=== PATIENT | female | born 1940 | race Caucasian/White ===

== ENCOUNTER 2016-08-08 13:21 | Inpatient (IN) ==
[2016-08-08] MEDS ORDERED: ZOFRAN IV ONE (13:46)
[2016-08-08] MEDS ORDERED: MORPHINE IV ONE ×2 (13:46→18:23)
--- NOTE | 2016-08-08 13:52 | PROVIDER DOCUMENTATION ---
HPI-Musculoskeletal Pain/Inj - GENERAL Stated Complaint: Hip Pain Post Fall Time Seen by Provider: 08/08/16 13:32 Source: patient - HX OF PRESENT ILLNESS-MUSKULOSKELTAL Nature of Presenting Problem: 76 y/o WF c hx of dementia and MVP, BIB EMS, family at bedside, s/p fall at 1130 today. She was on the boat with her son, was going down to go to the bathroom when she slipped and fell, landing on the right hip and hitting her head. Denies loc. Denies headache, changes in vision, blurry vision, nausea. Patient states she is not in pain, but when you go move the right leg, it is painful to her. Denies abdominal pain. Denies chest pain, sob. No currently on blood thinners. No medications administered on the ambulance ride. Quality of Pain: reports: sharp Severity in ED: moderate Onset/Duration: 1-3 hours ago Timing: still present, constant Any recent injury?: Yes Locality of Occurance: Home Similar Symptoms Previously?: No Recently seen or treated by another doctor?: No Review of Systems - Adult - REVIEW OF SYSTEMS - ADULT Constitutional: reports: no symptoms reported. denies: chills, fever, fatique Eyes: reports: no symptoms reported. denies: decreased vision, blurred vision, double vision, eye pain Ears, Nose, Mouth & Throat: reports: no symptoms reported. denies: ear pain, nose pain, throat pain Cardiovascular: reports: no symptoms reported. denies: chest pain, palpitations Respiratory: reports: no symptoms reported. denies: cough, shortness of breath , wheezing Gastrointestinal: reports: no symptoms reported. denies: abdominal pain, diarrhea, nausea, vomiting Genitourinary: reports: no symptoms reported. denies: incontinence Musculoskeletal: reports: joint pain (right hip). denies: bone pain, back pain , muscle aches Integumentary: reports: no symptoms reported. denies: rash Neurological: reports: no symptoms reported. denies: dizziness/vertigo, headache/migraines Psychiatric: reports: no symptoms reported Endocrine: reports: no symptoms reported Hematologic/Lymphatic: reports: no symptoms reported Allergic/Immunologic: reports: no symptoms reported All Other Systems: Reviewed and Negative Past History - Adult - PAST MEDICAL HISTORY-ADULT Review of Records: reports: Old Records Reviewed, Nursing Assessment Review, Medications Reviewed, Social history reviewed & non-contributory. Major Childhood Illnesses: reports: denies history Cardiovascular: reports: denies history Respiratory: reports: denies history Gastrointestinal: reports: denies history Obstetrical/Gynecological: reports: denies history Genitourinary: reports: denies history Musculoskeletal: reports: denies history Neurological: reports: denies history Endocrine/Immune: reports: denies history Other Conditions: reports: denies history - PRIOR SURGERIES/PROCEDURES Surgical/Procedure History: reports: reviewed, not pertinent - IMMUNIZATION STATUS Childhood Immunizations: See Nurse Assessment Flu Vaccine: See Nurse Assessment - FAMILY HISTORY Family History: reviewed, not pertinent - SOCIAL HISTORY Smoking: denies Substance Use: none/never Alcohol Use Frequency: never Living Situation: family Physical Exam-Injury Related - Physical Exam-Injury Related Initial Vital Signs Reviewed: Yes General Appearance: appears well, alert, no apparent distress Immobilization?: negative: backboard, C-collar, applied in ED, applied SCRAP METAL PROCESSING WORKER Eyes: PERRL/EOMI, pink conjunctivae Head, Ears, Nose, Mouth & Throat: normocephalic/atraumatic, moist mucous membranes Neck: non-tender, full range of motion, supple, normal inspection. negative: C- spine tenderness Respiratory: chest non-tender, lungs clear, normal breath sounds, no pleuratic chest pain, no respiratory distress, no accessory muscle use. negative: respiratory distress, decreased breath sounds, accessory muscle use, crackles, rales, rhonchi, stridor, wheezing Cardiovascular: normal peripheral pulses, regular rate, rhythm Peripheral Pulses: radial (R): 2+, radial (L): 2+, dorsalis-pedis (R): 2+, dorsalis-pedis (L): 2+ Abdominal Exam: normal bowel sounds, non tender, soft, no organomegaly, no pulsatile mass. negative: abdominal bruit, abnormal bowel sounds, distended, guarding, rigid, rebound Extremity: other (dec rom of the right hip. 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, no motor/sensory deficits Psych/Mental Status: normal mood/affect, normal thought content, normal thought process, oriented x 3 - Glascow Coma Score Best Eye Response (Levar): (4) open spontaneously Best Verbal Response (Levar): (5) oriented Best Motor Response (Levar): (6) obeys commands Progress - PLAN OF CARE/RESULTS Progress/Plan/Lab Results: Vital Signs Temp Pulse Resp BP Pulse Ox 08/08/16 19:44 98.5 F 77 122/68 96 08/08/16 16:40 61 18 100/51 97 08/08/16 13:39 98.0 F 63 18 149/66 100 aspirin Allergy (Verified 08/08/16 14:52) ANAPHYLAXIS Dietary Diet NPO Start [place] Aug 08 1620 I&O 08/07/16 08/08/16 08/09/16 06:59 06:59 06:59 Intake Total 90 Output Total 675 Balance -585 Laboratory 08/08/16 08/08/16 08/08/16 18:09 18:09 18:09 WBC 13.66 H RBC 4.10 L Hgb 11.9 L Hct 36.9 L MCV 90.0 MCH 29.0 MCHC 32.2 L RDW Std Deviation 14.1 Plt Count 159 MPV 12.4 H Immature Gran % (Auto) 0.2 Neut % (Auto) 88.4 H Lymph % (Auto) 7.5 L [place] % (Auto) 3.8 Eos % (Auto) 0.0 Baso % (Auto) 0.1 Immature Gran # (Auto) 0.03 Neut # (Auto) 12.06 H Lymph # (Auto) 1.03 L [place] # (Auto) 0.52 Eos # (Auto) 0.00 Baso # (Auto) 0.02 Segmented Neutrophils 88 H Band Neutrophils 2 H Lymphocytes 7 L Monocytes 1 Atypical Lymphocytes 2.0 PT 11.3 INR 1.07 PTT (Actin FS) 24.0 Sodium Potassium Chloride Carbon Dioxide Anion Gap BUN Creatinine Estimated GFR/1.73 m2 BUN/Creatinine Ratio Glucose Calculated Osmolality Calcium Total Bilirubin AST ALT Alkaline Phosphatase Total Protein Albumin Globulin Albumin/Globulin Ratio Urine Source Urine Color Urine Turbidity Urine pH Ur Specific [place] Urine Protein Ur Glucose (Stick) Ur Ketones (Stick) Urine Blood Urine Nitrite Urine Bilirubin Urobilinogen Dipstick Urine Leukocytes Urine WBC (Auto) Urine RBC (Auto) U Epithel Cells (Auto) Urine Bacteria (Auto) Blood Type A POSITIVE Antibody Screen NEGATIVE 08/08/16 08/08/16 08/08/16 18:09 16:10 14:30 WBC RBC Hgb Hct MCV MCH MCHC RDW Std Deviation Plt Count MPV Immature Gran % (Auto) Neut % (Auto) Lymph % (Auto) [place] % (Auto) Eos % (Auto) Baso % (Auto) Immature Gran # (Auto) Neut # (Auto) Lymph # (Auto) [place] # (Auto) Eos # (Auto) Baso # (Auto) Segmented Neutrophils Band Neutrophils Lymphocytes Monocytes Atypical Lymphocytes PT INR PTT (Actin FS) Sodium 140 132 L Potassium 4.0 3.9 Chloride 101 96 L Carbon Dioxide 23 L 24 L Anion Gap 16 12 BUN 15 15 Creatinine 0.6 0.6 L Estimated GFR/1.73 m2 > 60 > 60 BUN/Creatinine Ratio 25 25 Glucose 141 H 94 Calculated Osmolality 283 265 Calcium 9.1 9.3 Total Bilirubin 0.53 AST 27 ALT 21 Alkaline Phosphatase 53 Total Protein 7.2 Albumin 4.5 Globulin 2.7 Albumin/Globulin Ratio 1.7 Urine Source CATH Urine Color YELLOW Urine Turbidity CLEAR Urine pH 7.0 Ur Specific [place] 1.017 Urine Protein NEGATIVE Ur Glucose (Stick) NEGATIVE Ur Ketones (Stick) TRACE A Urine Blood NEGATIVE Urine Nitrite NEGATIVE Urine Bilirubin NEGATIVE Urobilinogen Dipstick NORMAL Urine Leukocytes NEGATIVE Urine WBC (Auto) <10 Urine RBC (Auto) <10 U Epithel Cells (Auto) <10 Urine Bacteria (Auto) NEGATIVE Blood Type Antibody Screen 08/08/16 14:30 WBC 13.20 H RBC 4.28 L Hgb 12.8 L Hct 38.3 L MCV 89.5 MCH 29.9 MCHC 33.4 RDW Std Deviation 14.1 Plt Count 171 MPV 12.5 H Immature Gran % (Auto) 0.3 Neut % (Auto) 86.4 H Lymph % (Auto) 9.8 L [place] % (Auto) 3.1 Eos % (Auto) 0.2 Baso % (Auto) 0.2 Immature Gran # (Auto) 0.04 Neut # (Auto) 11.42 H Lymph # (Auto) 1.29 [place] # (Auto) 0.41 Eos # (Auto) 0.02 Baso # (Auto) 0.02 Segmented Neutrophils Band Neutrophils Lymphocytes Monocytes Atypical Lymphocytes PT INR PTT (Actin FS) Sodium Potassium Chloride Carbon Dioxide Anion Gap BUN Creatinine Estimated GFR/1.73 m2 BUN/Creatinine Ratio Glucose Calculated Osmolality Calcium Total Bilirubin AST ALT Alkaline Phosphatase Total Protein Albumin Globulin Albumin/Globulin Ratio Urine Source Urine Color Urine Turbidity Urine pH Ur Specific [place] Urine Protein Ur Glucose (Stick) Ur Ketones (Stick) Urine Blood Urine Nitrite Urine Bilirubin Urobilinogen Dipstick Urine Leukocytes Urine WBC (Auto) Urine RBC (Auto) U Epithel Cells (Auto) Urine Bacteria (Auto) Blood Type Antibody Screen Orders Category Date [facility]ine AdmDCTranf 08/08/16 16:21 Ordered Activity - Bed Rest with BRP ORDERED Care 08/08/16 16:21 Active Activity Type ORDERED Care 08/08/16 17:31 Inactive Wharton's Traction Placement ONCE Care 08/08/16 18:26 Active Continue Hanks ORDERED Care 08/08/16 17:46 Hold Hanks Cath Insertion ORDERED Care 08/08/16 15:26 Completed Ice Chips ORDERED Care 08/08/16 18:24 Active Ice Pack to affected area DIRECTED Care 08/08/16 17:31 Active Misc. NRSG Communication Order DIRECTED Care 08/08/16 18:15 Completed Neurological Check PRN Care 08/08/16 16:21 Active Nursing- MD Consult Request ROUTINE Care 08/08/16 17:28 Completed Saline Loc NOW Care 08/08/16 13:45 Completed Start Pressure Ulcer Preventio ORDERED Care 08/08/16 17:31 Completed Update & Confirm Home Medicati ROUTINE Care 08/08/16 17:31 Active Vital Signs Order ROUTINE Care 08/08/16 16:21 Completed Vital Signs Order ROUTINE Care 08/08/16 17:31 Completed Physician/Provider Consults Routine Cons 08/08/16 17:20 Ordered NPO Diet 08/08/16 16:21 Active NPO Diet 08/09/16 00:01 Active CHEST-PORTABLE [RAD] Routine Exams 08/08/16 17:39 Taken HEAD/C-SPINE W/O CONTRAST [CT] Stat Exams 08/08/16 13:45 Draft PELVIS W/O CONTRAST [CT] Stat Exams 08/08/16 13:46 Draft BASIC METABOLIC PANEL [CHEM] Urgent Lab 08/08/16 18:09 Completed CBC WITH DIFF [HEME] Urgent Lab 08/08/16 18:09 Completed CBC WITH ELECTRONIC DIFF [HEME] Stat Lab 08/08/16 14:30 Completed COMPREHENSIVE METABOLIC PANEL [CHEM] Stat Lab 08/08/16 14:30 Completed PROTIME WITH INR [COAG] Urgent Lab 08/08/16 18:09 Completed PTT [COAG] Urgent Lab 08/08/16 18:09 Completed TYPE & SCREEN [BBK] Urgent Lab 08/08/16 18:09 Completed UA Reflex [URINALYSIS W/POSS RFLX CULT] [URINALYSIS] Lab 08/08/16 16:10 Completed Stat URINALYSIS [URINALYSIS] Routine Lab 08/08/16 17:31 Uncollected URINE CULTURE [RM] Routine Lab 08/08/16 17:31 Uncollected Acetaminophen [Tylenol] Med 08/08/16 18:00 Active 1,000 mg PO Q8H Alprazolam [Xanax] Med 08/08/16 18:25 Active 0.5 mg PO Q4H PRN PRN Haloperidol Lactate [Haldol] Med 08/08/16 17:53 Active 0.5 mg IV Q6H PRN PRN Hydromorphone [Dilaudid] Med 08/08/16 15:29 Discontinued 1 mg IV NOW ONE Lactated Ringers Inj [Lr] 1,000 ml Med 08/08/16 17:53 Active IV 75 mls/hr Metoprolol [Lopressor] Med 08/08/16 21:00 Active 25 mg PO Q12HR Morphine Med 08/08/16 14:50 Discontinued 2 mg IM NOW ONE Morphine Med 08/08/16 17:53 Discontinued 2 mg IV Q2H PRN PRN Morphine Med 08/08/16 16:21 Discontinued 2 mg IV Q4H PRN PRN Morphine Med 08/08/16 18:23 Discontinued 4 mg IV NOW ONE Morphine Med 08/08/16 17:53 Active 4 mg IV Q2H PRN PRN Ondansetron [Zofran] Med 08/08/16 14:52 Discontinued 4 mg IM NOW ONE Ondansetron [Zofran] Med 08/08/16 16:21 Active 4 mg IV Q4H PRN PRN Oxycodone I.r. [Oxy Ir] Med 08/08/16 17:53 Discontinued 5 mg PO Q2H PRN PRN Promethazine [Phenergan] Med 08/08/16 16:20 Discontinued 12.5 mg IV NOW ONE Sodium Chloride 0.9% Med 08/08/16 16:20 Discontinued 10 ml INJ NOW ONE EKG [EKG] Routine Ther 08/08/16 17:31 Ordered Transfer/Admit Order [TRANSFER] Routine Transfer 08/08/16 16:22 Completed - CT/MRI 1 CT Study: Cervical Spine, Head Impression: Normal (1. NAP intracranially 2. Advanced DJD but no fx or other definite acute cspine injury) 2 CT Study: Pelvis Impression: Abnormal (right femoral neck fx per Dr. Kahn radiology) - CONSULTS/PCP/HOSPITALIST Notification #1 *Consult/PCP/Hospitalist*: Dr. Dominique, ortho Time Discussed: 16:10 Reason/Comments: right femoral neck fracture Consult Disposition: Admit (Admit to) Departure - Departure Time of Disposition Order: 15:28 DIAGNOSIS: Femoral neck fracture Qualifiers: Encounter type: initial encounter Fracture type: closed Laterality: right Qualified Code(s): S72.001A - Fracture of unspecified part of neck of right femur, initial encounter for closed fracture Disposition: ADMITTED INPATIENT 09 Certified Medical Emergency: Emergent Condition: Stable Attestation - Physician/ TORY Attestation Patient care was provided by Advanced Practice Provider:: Yes Advanced Practice Provider:: Kell Galarza Advanced Practice Provider documentation review:: The Mid-level provider documentation, treatment plan and medical decision making was reviewed by the physician who agrees with all treatment and medical decision making by the MLP.
--- NOTE | 2016-08-08 14:26 | ED EKG INTERP ---
EKG Interpretation - EKG Time of EKG reading by physician:: 14:08 EKG Read and Signed by:: Zaida Juares EKG Interpretation (*Must complete 3 of following elements*): Normal Rate: 85 Rhythm: sinus rhythm with marked sinus arrhythmia [place]: normal Attestation - Scribe Verification/Attestation Scribe:: Elizabeth Valladares Acting as Scribe for:: Zaida Juares Scribe documention review:: This chart was documented by a scribe and accurately reflects the service the provider performed and the decisions made by the provider.
[2016-08-08] MEDS ORDERED: MORPHINE IM ONE (14:50)
[2016-08-08] MEDS ORDERED: ZOFRAN IM ONE (14:52)
[2016-08-08 15:11] LABS: BASO% 0.2 % (0.0-0.8); EOS# 0.02 X1000 (0.0-0.7); EOS% 0.2 % (0.0-10.0); HEMATOCRIT 38.3 % (42.0-52.0); HEMOGLOBIN 12.8 g/dL (14.0-18.0); IMM GRAN# 0.04 X1000 (0.0-0.04); IMM GRAN% 0.3 % (0.0-0.5); LYMPH# 1.29 X1000 (1.2-3.4); LYMPH% 9.8 % (20.5-51.1); MANUAL DIFF NEEDED? NO; MCH 29.9 PG (27-31); MCHC 33.4 g/dL (33-37); MCV 89.5 FL (81-99); MONO# 0.41 X1000 (0.11-0.59); MONO% 3.1 % (1.7-9.3); MPV 12.5 FL (7.4-10.4); NEUT% 86.4 % (42.2-75.2); PLT 171 X1000 (130-400); RBC 4.28 XMIL (4.7-6.1)
[2016-08-08 15:15] LABS: AGAP 12; ALBUMIN 4.5 g/dL (3.5-5.0); ALKALINE PHOSPHATASE 53 U/L (32-122); BUN 15 mg/dL (8-22); CALCIUM 9.3 mg/dL (8.8-10.2); CHLORIDE 96 mmol/L (98-107); COSMO 265; GOT 27 U/L (10-34); GPT 21 U/L (10-44); POTASSIUM 3.9 mmol/L (3.5-5.1); SODIUM 132 mmol/L (136-145); TCO2 24 mmol/L (25-35); TOTAL BILIRUBIN 0.53 mg/dL (0.20-1.00); TOTAL PROTEIN 7.2 g/dL (6.3-8.3)
[2016-08-08] MEDS ORDERED: DILAUDID IV ONE (15:29)
[2016-08-08] MEDS ORDERED: PHENERGAN IV ONE (16:20)
[2016-08-08] MEDS ORDERED: SODIUM CHLORIDE 0.9% INJ ONE (16:20)
[2016-08-08] MEDS ORDERED: MORPHINE IV PRN ×2 (16:21→17:53)
--- NOTE | 2016-08-08 16:53 | Diag Imaging Result Document ---
PROCEDURE NAME: PELVIS W/O CONTRAST - 08/08/2016 CT [facility] PELVIS WITHOUT CONTRAST: COMPARISON: None available. FINDINGS: There is an acute fracture involving the neck of the right femur. There is superior apex angulation of the fracture and some superior retraction of the femoral shaft. There are degenerative changes involving both femoral heads with sclerosis, which could indicate chronic avascular necrosis. No other discrete fracture is identified involving the hips, pelvis, or sacrum. There are extensive degenerative changes involving the lower lumbar spine. IMPRESSION: Fracture of the right femoral neck as described.
[2016-08-08 17:00] LABS: URINE CULTURE NEEDED? NO; URINE MICRO REVIEW NEEDED? NO; URINE SOURCE CATH
[2016-08-08 17:02] LABS: BILIRUBIN URINE NEGATIVE (NEGATIVE); BLOOD URINE NEGATIVE (NEGATIVE); COLOR YELLOW; GLUCOSE URINE NEGATIVE (NEGATIVE); LEUKOCYTES URINE NEGATIVE (NEGATIVE); NITRITE URINE NEGATIVE (NEGATIVE); PROTEIN URINE NEGATIVE (NEGATIVE); SP GRAVITY URINE 1.017; TURBIDITY URINE CLEAR (CLEAR); UR EPITHELIAL CELLS <10 /HPF (<10); URINE BACTERIA NEGATIVE /HPF; URINE RBC <10 /HPF (<10); URINE WBC <10 /HPF (<10); UROBILINOGEN URINE NORMAL (NORMAL)
[2016-08-08] MEDS: ZOFRAN IV PRN ×2 (17:42→20:43)
[2016-08-08] MEDS ORDERED: OXY IR PO PRN (17:53)
[2016-08-08] MEDS ORDERED: HALDOL IV PRN (17:53)
[2016-08-08 18:19] LABS: BASO% 0.1 % (0.0-0.8); HEMATOCRIT 36.9 % (37.0-47.0); HEMOGLOBIN 11.9 g/dL (12.0-16.0); IMM GRAN# 0.03 X1000 (0.0-0.04); IMM GRAN% 0.2 % (0.0-0.5); LYMPH# 1.03 X1000 (1.2-3.4); LYMPH% 7.5 % (20.5-51.1); MANUAL DIFF NEEDED? YES; MCHC 32.2 g/dL (33-37); MONO# 0.52 X1000 (0.11-0.59); MONO% 3.8 % (1.7-9.3); MPV 12.4 FL (7.4-10.4); NEUT% 88.4 % (42.2-75.2); PLT 159 X1000 (130-400)
[2016-08-08 18:24] LABS: INR 1.07; PROTIME 11.3 Seconds (9.2-11.7)
[2016-08-08] MEDS ORDERED: XANAX PO PRN (18:25)
[2016-08-08] MEDS: LR 1,000 ML IV SCH (18:26)
[2016-08-08 18:33] LABS: AGAP 16; BUN 15 mg/dL (8-22); CALCIUM 9.1 mg/dL (8.8-10.2); CHLORIDE 101 mmol/L (98-107); COSMO 283; SODIUM 140 mmol/L (136-145); TCO2 23 mmol/L (25-35)
[2016-08-08 18:35] LABS: BANDS 2 % (0-1); LYMPHS 7 % (21-51); MONO 1 % (1-9)
[2016-08-08] MEDS: MORPHINE IV PRN ×2 (19:05→21:23)
--- NOTE | 2016-08-08 19:20 | HISTORY AND PHYSICAL ---
CHIEF COMPLAINT: Right hip pain. PRESENT ILLNESS: This is the 1st recent [facility] admission for this 76-year-old white female who was on a boat with family and fell resulting in right hip pain. The injury occurred this morning and she presented to the emergency room. CT scan of the pelvis revealed right hip fracture of the right femoral neck. There were no pelvic fractures. 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 She is admitted for pain control, evaluation, and for orthopedic consultation with hip repair. PAST MEDICAL HISTORY: No recent hospitalizations or surgeries. PRESENT MEDICATIONS: Only p.r.n. Lasix. ALLERGIES: Aspirin. REVIEW OF SYSTEMS: Mild to moderate dementia. Otherwise unremarkable. She has had no dizziness or gait disturbances. SOCIAL HISTORY: No smoking or alcohol usage. FAMILY HISTORY: Unremarkable. PHYSICAL EXAMINATION: VITAL SIGNS: Temperature 98.0 degrees, heart rate 63, respiration 18, blood pressure 149/66, O2 saturation 100% on room air. Her weight is 145 according to her son and height is 5 feet 3 inches. HEENT: Pupils equal, round, and reactive to light. Tympanic membranes without inflammation. Pharynx benign with no erythema or exudate. NECK: Supple with no mass or lymphadenopathy. HEART: Irregular in rate with no murmur. EKG showed sinus arrhythmia. LUNGS: Clear with no rales or rhonchi. ABDOMEN: Soft with no mass, tenderness, or organomegaly. EXTREMITIES: Pain with any motion of the right hip. There is no significant swelling or discoloration. Ankles, no edema. RECTAL AND GENITALIA: Deferred. LABORATORY: Hemoglobin 11.9, hematocrit 36.9, white blood count 13,600 with 88% neutrophils. Sodium 132, potassium 3.9, chloride 96, carbon dioxide 24, BUN 15, creatinine 0.6, glucose 94, calcium 9.3. Liver functions normal. IMPRESSION: Acute fracture of the right femoral neck, osteoarthritis of the lumbar spine, dementia. PLAN: Admit for further evaluation including orthopedic consultation.
[2016-08-08] MEDS: TYLENOL PO SCH (20:00)
--- NOTE | 2016-08-08 20:37 | Diag Imaging Result Document ---
PROCEDURE NAME: HEAD/C-SPINE W/O CONTRAST - 08/08/2016 CT HEAD AND C-SPINE WITHOUT CONTRAST: COMPARISON: None available. FINDINGS: HEAD: There is diffuse brain atrophy. There is no discrete intracranial mass, mass effect, or intracranial hemorrhage. There is no evidence of acute infarct given the limited sensitivity of CT versus MRI. There is bilateral ethmoid, right sphenoid, and bilateral maxillary sinus mucosal disease with a small air-fluid level in the left maxillary sinus. Surrounding soft tissues are essentially unremarkable by CT, otherwise. The calvaria is intact. C-SPINE: There is extensive multilevel degenerative disk disease, worse at and below the C3-4 level with significant loss of disk space height and marginal osteophyte formation with endplate degenerative sclerosis and Schmorl's node formation. This is causing some degree of central canal and neural foraminal stenosis bilaterally. This is chronic, however. There is no discrete fracture, subluxation, or intrinsic osseous lesion, otherwise. Surrounding soft tissues are grossly unremarkable. IMPRESSION: 1. Diffuse brain atrophy, but no evidence of acute intracranial pathology. 2. Paranasal sinus mucosal disease. 3. Extensive degenerative disk disease, but no evidence of fracture or other definite acute C- spine injury.
[2016-08-08] MEDS: LOPRESSOR PO SCH (21:00)
[2016-08-09] MEDS: MORPHINE IV PRN ×2 (01:11→09:40)
[2016-08-09] MEDS: ZOFRAN IV PRN ×2 (01:11→09:54)
[2016-08-09] MEDS: TYLENOL PO SCH ×2 (03:34→22:30)
[2016-08-09] MEDS: LR 1,000 ML IV SCH ×2 (05:31→07:55)
--- NOTE | 2016-08-09 07:59 | PROGRESS NOTE ---
DATE: 08/09/2016 SUBJECTIVE: The patient was admitted on 08/08/[address] Ifeanyi Ibarra, noted to have an acute fracture of the right femoral neck. Overnight no acute changes. The patient was delivered via EMS to the room. Orthopedics have been consulted. PHYSICAL EXAMINATION: Vital Signs: Temperature 98.4, pulse 94, blood pressure 110/84, O2 saturation 96% on room air. Patient is approximately 140 pounds. General: Physical exam, thin, elderly female in [id number] distress. Note slight sedation secondary to morphine. Lungs: Clear. CV: Regular rate. No murmurs, gallops, or rubs. Extremities: Lower extremities show no cyanosis, clubbing, or edema. Neurologic: Cranial nerves 2-12 are grossly intact. The patient has demonstrated mild confusion at baseline. LABS: WBC of 13.66 with an hemoglobin and hematocrit of 11.9 and 36.9, platelets of 159. Neutrophils of 88.4 with 88 segs. Sodium is 140, potassium 4.0, BUN is 15 with a creatinine 0.6. Glucose of 141, UA negative. Microbiology: Urine culture clean catch pending. Patient had a CT of the cervical spine. CT of the cervical spine and head was within normal limits. CT bony pelvis shows fracture right femoral neck as described above. ASSESSMENT AND PLAN: A 76-year-old white female with: 1. Right hip fracture, right femoral neck. 2. Anemia. 3. Leukocytosis. 4. Mild dehydration. We will continue to follow status post evaluation with Orthopedics today. Continue pain management. Continue n.p.o. status and traction as prior ordered. Follow up on labs daily and make any changes status post orthopedics evaluation.
--- NOTE | 2016-08-09 08:15 | Diag Imaging Result Document ---
PROCEDURE NAME: CHEST-PORTABLE - 08/08/2016 SINGLE FRONTAL RADIOGRAPH OF THE CHEST: COMPARISON: None available. FINDINGS: The lungs are grossly clear. There is no discrete pleural fluid collection or pneumothorax. The cardiomediastinal silhouette and upper airway are grossly unremarkable. IMPRESSION: No evidence of acute chest pathology.
[2016-08-09] MEDS: LOPRESSOR PO SCH ×2 (09:58→22:31)
[2016-08-09] MEDS ORDERED: BLISTEX MEDICATED BERRY LIP BALM TOP ONE (11:26)
[2016-08-09] MEDS ORDERED: KEFZOL 1 GM/D5W 50 ML ONE (14:39)
--- NOTE | 2016-08-09 15:10 | EKG Report ---
Test Performed on : 08/08/2016 6:34:01 PM Test Reason : Hip fracture protocol Blood Pressure : / mmHG Vent. Rate : 068 BPM Atrial Rate : 068 BPM P-R Int : 160 ms QRS Dur : 092 ms QT Int : 414 ms P-R-T Axes : 054 007 057 degrees QTc Int : 440 ms Normal sinus rhythm. with sinus arrhythmia. Normal ECG No previous ECGs available Confirmed by Oscar Perdomo MD ([id number]) on 08/11/2016 8:56:04 PM
[2016-08-09] MEDS ORDERED: TORADOL ONE (15:22)
[2016-08-09] MEDS ORDERED: MARCAINE 0.25% PF/EPI 1:200,000 ONE (15:22)
[2016-08-09] MEDS ORDERED: DURAMORPH ONE (15:22)
[2016-08-09] MEDS ORDERED: SODIUM CHLORIDE 0.9% ONE (15:23)
[2016-08-09] MEDS ORDERED: EXPAREL 1.3% ONE (15:23)
[2016-08-09] MEDS ORDERED: NEOSPORIN G.U. IRRIGANT ONE (15:24)
[2016-08-09] MEDS ORDERED: NS 1,000 ML ONE (17:29)
[2016-08-09] MEDS ORDERED: FENTANYL ONE (17:53)
[2016-08-09] MEDS ORDERED: DIPRIVAN 1% ONE (17:53)
[2016-08-09] MEDS ORDERED: OXY IR PO PRN (18:32)
[2016-08-09] MEDS ORDERED: MORPHINE IV PRN (18:33)
[2016-08-09] MEDS ORDERED: ZOFRAN IV PRN (18:33)
[2016-08-09] MEDS ORDERED: MILK OF MAGNESIA PO PRN (18:34)
[2016-08-09] MEDS ORDERED: AMBIEN PO PRN (18:34)
[2016-08-09] MEDS ORDERED: TYLENOL PO SCH (18:45)
[2016-08-09] MEDS: NS 1,000 ML IV SCH (20:00)
--- NOTE | 2016-08-09 21:42 | CONSULTATION ---
DATE OF CONSULTATION: 08/09/2016 CHIEF COMPLAINT: Right hip pain. HISTORY OF PRESENT ILLNESS: This is a 76-year-old, white female who fell on the family boat injuring her right hip. She states she did not have loss of consciousness. She simply tripped and fell. She was then admitted to the hospitalist for medical evaluation. Orthopedics has been consulted for a right hip hemiarthroplasty. The surgical procedure as well as risks and benefits were explained to patient and family at this time. ALLERGIES: Aspirin. PAST MEDICAL HISTORY: No history of any medical illness other than dementia. REGULAR MEDICATIONS: Lasix p.r.n. PAST SURGICAL HISTORY: She had sinus surgery many years ago and cataract surgery. REVIEW OF SYSTEMS: Review of systems are basically negative other than some mild to moderate dementia. She smokes about a half pack of cigarettes per day. She does not have any history of any serious illnesses. PHYSICAL EXAMINATION: General Appearance: This is a 76-year-old female. She is alert and oriented but does not answer all questions appropriately. The family states this is her usual state of some confusion. HEENT: Pupils equal, round, reactive. She has had cataract surgery. Neck: Good range of motion without lymphadenopathy. Heart: Slightly irregular. Respiratory: Respirations are equal, unlabored, clear bilaterally. Abdomen: Soft, nontender. Bowel sounds present. Extremities: She is unable to move her right leg. The right leg is slightly shortened and externally rotated. She does have good sensation and refill to her toes. IMPRESSION: Fractured right hip. PLAN: She was admitted to the hospitalist for medical evaluation and a right hip hemiarthroplasty will be performed today. Dictated by Giles Quach RN for Deandre Ricardo MD
[2016-08-09] MEDS: KEFZOL 2 GM/D5W 50 ML IV SCH (22:28)
[2016-08-09] MEDS: PERIDEX MT SCH (22:28)
[2016-08-09] MEDS: LYRICA PO SCH (22:29)
[2016-08-09] MEDS: COLACE PO SCH (22:31)
[2016-08-10] MEDS: ULTRAM PO SCH ×5 (02:14→21:52)
[2016-08-10 05:46] LABS: MANUAL DIFF NEEDED? NO
[2016-08-10] MEDS: KEFZOL 2 GM/D5W 50 ML IV SCH ×2 (05:47→08:03)
[2016-08-10] MEDS: NS 1,000 ML IV SCH ×2 (05:47→21:53)
[2016-08-10] MEDS: TYLENOL PO SCH ×4 (05:48→21:52)
[2016-08-10] MEDS: XARELTO PO SCH (05:49)
[2016-08-10 06:08] LABS: EOS# 0.01 X1000 (0.0-0.7); EOS% 0.1 % (0.0-10.0); HEMATOCRIT 27.6 % (37.0-47.0); HEMOGLOBIN 8.9 g/dL (12.0-16.0); IMM GRAN# 0.02 X1000 (0.0-0.04); IMM GRAN% 0.2 % (0.0-0.5); LYMPH# 0.86 X1000 (1.2-3.4); LYMPH% 9.5 % (20.5-51.1); MCH 29.3 PG (27-31); MCHC 32.2 g/dL (33-37); MCV 90.8 FL (81-99); MONO% 7.7 % (1.7-9.3); MPV 12.3 FL (7.4-10.4); NEUT% 82.5 % (42.2-75.2); PLT 142 X1000 (130-400); RBC 3.04 XMIL (4.2-5.4)
[2016-08-10 06:13] LABS: AGAP 10; ALBUMIN 2.8 g/dL (3.5-5.0); ALKALINE PHOSPHATASE 36 U/L (32-104); BUN 11 mg/dL (8-22); CALCIUM 7.8 mg/dL (8.8-10.2); CHLORIDE 104 mmol/L (98-107); COSMO 277; GOT 26 U/L (10-30); GPT 14 U/L (10-36); MAGNESIUM 1.9 mg/dL (1.5-2.7); POTASSIUM 4.6 mmol/L (3.5-5.1); SODIUM 138 mmol/L (136-145); TCO2 24 mmol/L (25-35); TOTAL BILIRUBIN 0.37 mg/dL (0.20-1.00)
[2016-08-10] MEDS ORDERED: DEPAKOTE SPRINKLE PO PRN (07:12)
[2016-08-10] MEDS ORDERED: M.V.I.-12 10 ML, FOLIC ACID 1 MG, MAGNESIUM SULFATE 1 GM, THIAMINE 100 MG in NS 1,000 ML IV ONE (08:00)
--- NOTE | 2016-08-10 08:25 | Diag Imaging Result Document ---
PROCEDURE NAME: PELVIS - 08/09/2016 SINGLE FRONTAL RADIOGRAPH OF THE PELVIS AND HIPS: COMPARISON: None available. FINDINGS: There has been recent right hip arthroplasty. The arthroplasty hardware is in the expected position. There is no evidence of periprosthetic fracture. IMPRESSION: Satisfactory postoperative hip.
[2016-08-10] MEDS ORDERED: DECADRON IV ONE (09:00)
[2016-08-10] MEDS ORDERED: ZOFRAN ONE (09:24)
[2016-08-10] MEDS ORDERED: XYLOCAINE-MPF 2% ONE (09:25)
[2016-08-10] MEDS ORDERED: EXTENSION SET 32 IN 4522 ONE (09:25)
[2016-08-10] MEDS ORDERED: ANESTHESIA PB SET 88 IN 5742 ONE (09:25)
[2016-08-10] MEDS ORDERED: EPHEDRINE ONE (09:25)
[2016-08-10] MEDS ORDERED: DECADRON ONE (09:25)
[2016-08-10] MEDS ORDERED: LR 1,000 ML ONE (09:25)
--- NOTE | 2016-08-10 09:47 | OPERATIVE NOTE ---
PROCEDURE DATE: 08/09/2016 PREOPERATIVE DIAGNOSIS: Right displaced femoral neck fracture. POSTOPERATIVE DIAGNOSIS: Right displaced femoral neck fracture. PROCEDURE PERFORMED: Right bipolar hemiarthroplasty using German size 8 Secure-Fit Stem with a +10 neck length and a 42 mm bipolar 22 mm +10 head. ANESTHESIA: General. SURGEON: Dr. Deandre Ricardo. MICROELECTRONICS ENGINEER: NICHELLE Lomax. SECOND MICROELECTRONICS ENGINEER: ANIKA Rudolph. COMPLICATIONS: None. BLOOD LOSS: Minimal. DESCRIPTION OF PROCEDURE: The patient was brought to operative suite and placed in supine position. After successful administration of general anesthesia, the patient was placed in the left lateral decubitus position with the right hip up. The right hip was then prepped and draped in the usual sterile fashion. Using the posterior approach to the hip, it was dissected sharply through the skin down to the gluteus fascia. The gluteus fascia was incised down to the bursa. The bursa was incised exposing the piriformis tendon. The piriformis tendon was tagged and an L- capsulotomy was performed exposing the femoral neck. A femoral neck cut was made with the oscillating saw. The femoral head was removed with a power corkscrew. The head was measured to 42 mm. It was trialed to 40-50 mm and found to be an excellent fit. Attention was then directed to the femur. Using an entry broach and the T-handle reamer, lateralizing reamer, it was serially reamed and broached to a size 8 stem. It was trial size 8 standard offset + 10 and was found to be an excellent fit, soft tissue balancing and stability. The trial was removed. The definitive stem was driven onto the femur. Once it was well seated, the Mosley taper was cleaned and dried and then the +10 22 mm head was locked onto the Mosley taper and then the 42 mm bipolar head was locked onto the 22 mm head and then the hip was copiously irrigated and dried, and then the hip was reduced. The posterior capsule was repaired to the greater trochanter and then the superior capsular limb was repaired with interrupted FiberWire suture. The short external rotators were also repaired through drill holes in the greater trochanter with FiberWire sutures. The hip was copiously infiltrated with Exparel, including the anterior capsule, posterior gluteus muscles and subcutaneous tissue. The gluteus fascia was closed with 0 Vicryl. Skin edge approximated with 2- 0 Vicryl. Skin was closed with skin reinaldo and a sterile dressing was applied. The patient tolerated the procedure well without complication. At the end the procedure, all counts were correct x2. The patient was transferred to the recovery room in stable condition.
[2016-08-10] MEDS: PERIDEX MT SCH (10:34)
[2016-08-10] MEDS: COLACE PO SCH ×2 (10:35→21:52)
[2016-08-10] MEDS: CELEBREX PO SCH ×2 (10:35→21:52)
[2016-08-10] MEDS: PEPCID PO SCH (10:36)
[2016-08-10] MEDS: LOPRESSOR PO SCH (10:37)
[2016-08-10] MEDS: LYRICA PO SCH ×2 (10:53→21:52)
--- NOTE | 2016-08-10 12:30 | PROGRESS NOTE ---
DATE: 08/10/2016 PRIMARY CARE PHYSICIAN: Dr. Henrique Hernandez. SUBJECTIVE: Overnight patient had to use high doses of sedating medications status post her surgery, but secondary to the excellent assistance with the family at bedside patient has responded well and is easily calmed. Patient's current pain medication use has been the oxycodone and tramadol. There was no Haldol required. VITAL SIGNS: Temperature 98.2 degrees, pulse 58, blood pressure low at 80/45. The O2 saturation 94% on room air. Intake/output demonstrate almost 2000 mL balance. The patient is currently not eating. OBJECTIVE: General: On physical exam, this is an elderly female, appearance consistent with age, lying in bed postop day 1 mildly sedated and noncombative. CV: Shows a bradycardic rhythm with occasional premature ventricular contractions. No murmurs, gallops, rubs. Chest: Clear to auscultation anteriorly with no wheezes, no rhonchi. Abdomen: Soft, nontender, nondistended. Extremities: Show right lower extremity is stabilized. The dressings are clean, dry. Distal pulses are 2+. No overt edema above expectations. Neurologic: Cranial nerves 2 through 12 are grossly intact. Psych: Patient shows overt dementia, but otherwise is in good spirits. LABORATORY DATA: This a.m. show a hemoglobin and hematocrit of 8.9 and 27.6 with MCV of 90, platelet count of 142, neutrophils 82.5. Sodium 138, BUN of 11 with a creatinine 0.6, glucose 127, calcium 7.8, total protein 5.0 with an albumin of 2.8. MICROBIOLOGY: Urine culture: No growth. ASSESSMENT AND PLAN: A 76-year-old, white female with a history of dementia and: 1. Right hip hemiarthroplasty. 2. Anemia with dilutional effect. 3. Dementia with history of behavioral disturbances, currently stable. 4. Hypovolemia. 5. Hypotension. We will continue of record intravenous fluid resuscitation and utilize the oral pain medications only as necessary. We will have day/night precautions and all dementia precautions to avoid any worsening of the patient's dementia with expectation of delirium. We will order another hemoglobin and hematocrit in the morning, continue to monitor on the high-volume fluid resuscitation and provide transfusion if the patient's hemoglobin drops below 8.0. Continue to follow along with Dr. Carr regarding postop care. Make any changes as necessary.
--- NOTE | 2016-08-10 13:20 | PROGRESS NOTE ---
DATE: 08/10/2016 SUBJECTIVE: Radha Martell is a 76-year-old female who is postoperative day 1 from a right bipolar hemiarthroplasty. She has no complaints. OBJECTIVE: She is a well-developed, well-nourished female. She is alert, oriented, and cooperative with exam. Her vital signs are stable. She is afebrile. Her hematocrit is 27.6. She has been running hypotensive. They have increased her fluids to combat this. ASSESSMENT: Stable postop day 1 visit from a right bipolar hemiarthroplasty. PLAN: We will begin physical therapy with her today. Hopefully, this will stimulate her blood pressure. She will likely go to rehab later in the week.
[2016-08-11 05:51] LABS: MANUAL DIFF NEEDED? NO
[2016-08-11 06:36] LABS: AGAP 7; ALKALINE PHOSPHATASE 37 U/L (32-104); BUN 11 mg/dL (8-22); CALCIUM 7.9 mg/dL (8.8-10.2); CHLORIDE 104 mmol/L (98-107); COSMO 274; GOT 31 U/L (10-30); GPT 13 U/L (10-36); MAGNESIUM 2.2 mg/dL (1.5-2.7); POTASSIUM 4.5 mmol/L (3.5-5.1); SODIUM 137 mmol/L (136-145); TCO2 26 mmol/L (25-35); TOTAL BILIRUBIN 0.17 mg/dL (0.20-1.00); TOTAL PROTEIN 5.3 g/dL (6.3-8.3)
[2016-08-11 06:52] LABS: HEMATOCRIT 24.4 % (37.0-47.0); HEMOGLOBIN 7.5 g/dL (12.0-16.0); LYMPH# 1.08 X1000 (1.2-3.4); LYMPH% 14.7 % (20.5-51.1); MCH 28.4 PG (27-31); MCHC 30.7 g/dL (33-37); MCV 92.4 FL (81-99); MONO% 9.5 % (1.7-9.3); MPV 12.7 FL (7.4-10.4); NEUT% 75.8 % (42.2-75.2); PLT 127 X1000 (130-400); RBC 2.64 XMIL (4.2-5.4); RETIC% 1.38 % (0.8-2.1); RETIC-HE 33.1 PG (28.2-36.6)
[2016-08-11] MEDS: ULTRAM PO SCH ×4 (06:55→18:33)
[2016-08-11] MEDS: NS 1,000 ML IV SCH (06:55)
[2016-08-11] MEDS: LOPRESSOR PO SCH ×3 (06:57→21:21)
[2016-08-11] MEDS: TYLENOL PO SCH ×4 (06:57→23:21)
[2016-08-11] MEDS: XARELTO PO SCH (06:58)
[2016-08-11] MEDS ORDERED: BENADRYL LIQUID PO ONE (07:28)
[2016-08-11] MEDS ORDERED: NS 500 ML IV ONE (07:28)
[2016-08-11] MEDS: LYRICA PO SCH ×2 (08:27→21:22)
[2016-08-11] MEDS: CELEBREX PO SCH ×2 (08:27→21:22)
[2016-08-11] MEDS: PEPCID PO SCH (08:28)
[2016-08-11] MEDS: COLACE PO SCH ×2 (08:28→21:22)
--- NOTE | 2016-08-11 10:14 | PROGRESS NOTE ---
DATE: 08/11/2016 PRIMARY CARE PHYSICIAN: Dr. Henrique Hernandez. ORTHOPEDICS: Dr. Ricardo. SUBJECTIVE: Overnight, the patient responded well. No overt issues or outbreaks. No required additional medicines. The patient's pain is well controlled. Vital signs within normal limits. Temperature 98 degrees, pulse 73, O2 saturation 100% on room air. I's and O's a -856 fluid balance. The patient is eating approximately 70% of meals. PHYSICAL EXAMINATION: General: Elderly female in no acute distress lying supine with right hip lower extremity bandaged appropriately. No cyanosis, clubbing or edema. The range of motion slightly limited but overall with good effect. CV: Regular rhythm. No murmurs, gallops or rubs. Lungs: Clear to auscultation anteriorly. HEENT: Pupils are equal, round and reactive to light and accommodations. Neurologic: Cranial nerves 2-12 are grossly intact with equal, round and reactive pupils. Extraocular movements are intact. Psychiatric: The patient has a normal mood and affect slightly disoriented language consistent with baseline. LABORATORY: Labs demonstrated WBC of 7.34 with a hemoglobin and hematocrit at 7.5 and 24.4, MCV of 92, platelet count of 127,000. Neutrophils down from 7.4 to 5.7. Chemistry shows BUN of 11, creatinine 0.7, glucose 114. Calcium 7.9, total bilirubin of 0.17 with an AST slightly elevated at 31. ASSESSMENT AND PLAN: A 76-year-old white female with the followin. Right hip hemiarthroplasty. 2. Anemia delusional plus blood loss, status post surgery. 3. Dementia with behavioral disturbances. 4. Hypovolemia. 5. Hypotension. The patient was responding well to IV fluid resuscitation. Will stop IV fluids and replete with 2 units of packed red blood cells. Checking CBC in the morning. The patient will continue physical therapy with plans for discharge to rehab likely in 1-2 days. Otherwise, patient is doing well. We will follow with Dr. Ricardo regarding the postop care and physical therapy as he deems best regarding the aggressive nature of the therapy. Patient is stable mentally not requiring the majority of antipsychotics medications on her list. Pain medication is becoming less and less required as well. Overall good effect. Will continue to monitor.
[2016-08-11] MEDS: LASIX IV SCH ×2 (13:52→16:30)
--- NOTE | 2016-08-11 14:31 | PROGRESS NOTE ---
DATE: 08/11/2016 SUBJECTIVE: Radha Martell is a 76-year-old female who is postoperative day 2 from a right bipolar hemiarthroplasty due to her basicervical displaced femoral neck fracture on the right. She has no complaints. She is receiving a transfusion today. OBJECTIVE: She is a well-developed, well-nourished female. She is alert and cooperative with her exam. Her dressing is clean, dry, and intact without sign of infection. Her leg is neurovascularly intact. Her hematocrit this morning was 24.4%. She has walked 25 feet with physical therapy. ASSESSMENT: Stable postoperative day 2 visit from a right bipolar hemiarthroplasty secondary to basicervical displaced femoral neck fracture. PLAN: We will continue to work on physical therapy. She will likely go to rehab tomorrow.
[2016-08-11] MEDS ORDERED: NS 1,000 ML ONE (14:49)
[2016-08-12] MEDS: ULTRAM PO SCH ×3 (01:04→11:24)
[2016-08-12 05:56] LABS: MANUAL DIFF NEEDED? NO
[2016-08-12 06:21] LABS: BASO% 0.3 % (0.0-0.8); EOS# 0.16 X1000 (0.0-0.7); EOS% 1.7 % (0.0-10.0); HEMATOCRIT 27.6 % (37.0-47.0); IMM GRAN# 0.02 X1000 (0.0-0.04); IMM GRAN% 0.2 % (0.0-0.5); LYMPH# 2.26 X1000 (1.2-3.4); LYMPH% 24.6 % (20.5-51.1); MCH 30.1 PG (27-31); MCHC 32.6 g/dL (33-37); MCV 92.3 FL (81-99); MONO# 0.92 X1000 (0.11-0.59); MPV 12.3 FL (7.4-10.4); NEUT% 63.2 % (42.2-75.2); PLT 129 X1000 (130-400); RBC 2.99 XMIL (4.2-5.4)
[2016-08-12 06:25] LABS: AGAP 6; ALBUMIN 2.8 g/dL (3.5-5.0); ALKALINE PHOSPHATASE 36 U/L (32-104); BUN 20 mg/dL (8-22); CALCIUM 8.1 mg/dL (8.8-10.2); CHLORIDE 107 mmol/L (98-107); COSMO 282; GOT 35 U/L (10-30); GPT 13 U/L (10-36); POTASSIUM 4.4 mmol/L (3.5-5.1); SODIUM 140 mmol/L (136-145); TCO2 27 mmol/L (25-35); TOTAL BILIRUBIN 0.17 mg/dL (0.20-1.00)
[2016-08-12] MEDS: TYLENOL PO SCH ×2 (07:15→09:03)
--- NOTE | 2016-08-12 07:40 | Diag Imaging Result Document ---
PROCEDURE NAME: CHEST-PORTABLE - 08/12/2016 AP PORTABLE CHEST, 08/12/2016 AT 0555 HOURS: FINDINGS: The inspiration is suboptimal. Compared to , there has been no significant change in the appearance of the chest. IMPRESSION: Stable chest.
[2016-08-12 07:58] VITALS: BP 149/70
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
[2016-08-12] MEDS: COLACE PO SCH (09:03)
[2016-08-12] MEDS: CELEBREX PO SCH (09:03)
[2016-08-12] MEDS: PEPCID PO SCH (09:03)
[2016-08-12] MEDS: LOPRESSOR PO SCH (09:03)
[2016-08-12] MEDS: LYRICA PO SCH (09:03)
--- NOTE | 2016-08-12 09:58 | PROGRESS NOTE ---
DATE: 08/12/2016 SUBJECTIVE: Radha Martell is a 76-year-old female who is postoperative day 3 from a right bipolar hemiarthroplasty. She has no new complaints. She did have some bleeding in her dressing yesterday. Her hematocrit was lower yesterday, but has improved today. OBJECTIVE: She is a well-developed, well-nourished female who is alert, oriented, and cooperative to exam. Her wound is now dry and intact. Her hematocrit is 27.6. Her vital signs are stable. She is afebrile. She walked 225 feet. ASSESSMENT: Postoperative day 3 right bipolar hemiarthroplasty. PLAN: She will continue working on physical therapy. She can be transferred to rehab whenever cleared by Dr. Hernandez.
== END 2016-08-12 12:55 | DRG 470 ==
LOC: EDBD → ED 13:21 → 4N 16:39 → EDSEX 16:39 → DIRADM 08-09 14:10 → 4N 08-09 14:20
PROVIDERS: ADMIT Family Medicine; ATTEND Family Medicine
PROC: 0SRR0JA Replacement of Right Hip Joint, Femoral Surface with Synthetic Substitute, Uncemented, Open Approach (ICD-10-PCS; principal; 2016-08-09 15:34)
PROC: 30233N1 Transfusion of Nonautologous Red Blood Cells into Peripheral Vein, Percutaneous Approach (ICD-10-PCS; 2016-08-11)
DX: S72.001A Fracture of unspecified part of neck of right femur, initial encounter for closed fracture (principal); F05 Delirium due to known physiological condition; I95.9 Hypotension, unspecified; E86.0 Dehydration; D62 Acute posthemorrhagic anemia; F03.91 Unspecified dementia, unspecified severity, with behavioral disturbance; M47.816 Spondylosis without myelopathy or radiculopathy, lumbar region; F17.210 Nicotine dependence, cigarettes, uncomplicated; Z79.899 Other long term (current) drug therapy
CPT/HCPCS: 70450; 71010; 72125; 72170; 72192; 80048; 80053; 81001; 82607; 82728; 82746; 83735; 83880; 84100; 85025; 85045; 85610; 85730; 86850; 86900; 86901; 86920; 87088; 88305; 88311; 93005; 93010; 94761; 96372; 96374; C9290; J0690; J1100; J1170; J1885; J1940; J2270; J2274; J2405; J3010; J3411; J3475; J7030; J7040; J7120; P9016; 97110-GP; 97116-GP; S0020